=== PATIENT | male | born 1945 | race Caucasian/White ===

== ENCOUNTER 2023-02-24 13:44 | Inpatient (IN) | payer OTHER, MEDICAID ==
[~2023-02-24] VITALS: Ht 170.2 cm; Wt 51.7 kg
[2023-02-24 13:56] VITALS: BP_SYST 114; PULSE 86; RESP 18; TEMP 98.3; O2SAT 96
[2023-02-24] MEDS ORDERED: NACL 0.9% 1,000 ML IV ONE (14:15)
[2023-02-24 14:52] LABS: BASOPHILS % (AUTO) 0.2 % (0.0-2.0); HEMATOCRIT 31.5 % (36-54); HEMOGLOBIN 10.5 g/dL (14.0-18.0); LYMPHOCYTES # (AUTO) 1.1 K/uL (1.0-5.5); MEAN CORPUSCULAR HEMOGLOBIN 29 pg (27-31); MEAN CORPUSCULAR HGB CONC 33 % (32-36); MEAN CORPUSCULAR VOLUME 88 fL (79.0-98.0); MONOCYTES # (AUTO) 1.2 K/uL (0.0-1.0); NEUTROPHILS # (AUTO) 8.9 K/uL (1.8-7.7); NEUTROPHILS % (AUTO) 78.8 % (40.0-70.0); PLATELET COUNT (AUTO) 451 K/uL (130-430); RED BLOOD CELL COUNT(AUTO) 3.57 MIL/uL (4.2-6.2); RED CELL DISTRIBUTION WIDTH 17.7 % (9.0-15.0); WHITE BLOOD COUNT (AUTO) 11.3 K/uL (4.8-10.8)
[2023-02-24 14:59] LABS: ANION GAP 9 (5-15); CALCIUM 8.5 mg/dL (8.4-11.0); CHLORIDE 106 mmol/L (98-107); CREATININE 0.76 mg/dL (0.55-1.30); GLUCOSE 93 mg/dL (74-106); UREA NITROGEN, BLOOD 17 mg/dL (8-21)
[2023-02-24 15:03] LABS: ALANINE AMINOTRANSFERASE 20 U/L (12-78); ALBUMIN 3.2 g/dL (3.4-4.8); ASPARTATE AMINOTRANSFERASE 20 U/L (10-37); TOTAL BILIRUBIN 0.4 mg/dL (0.0-1.0)
--- NOTE | 2023-02-24 15:44 | NUR ---
In ER bed 2 Sent because he has not been able to sit up well at facilty
[2023-02-24 17:43] LABS: BILIRUBIN,URINE NEGATIVE (NEGATIVE); BLOOD, URINE 2+ (NEGATIVE); CLARITY/URINE HAZY (CLEAR); COLOR,URINE YELLOW (YELLOW); GLUCOSE,URINE NEGATIVE (NEGATIVE); KETONES,URINE TRACE (NEGATIVE); LEUKOCYTE ESTERASE ,URINE 2+ (NEGATIVE); NITRITE, URINE POSITIVE (NEGATIVE); PROTEIN URINE 1+ (NEGATIVE)
[2023-02-24 17:46] LABS: RBC,URINE 20-50 /HPF (0-3)
[2023-02-24 17:47] LABS: BACTERIA,URINE MANY /HPF (None Seen); WBC,URINE 20-50 /HPF (0-3)
[2023-02-24] MEDS ORDERED: PIPERACILLIN/TAZO 3.375 GM in NS 50 ML IV ONE (18:00)
[2023-02-24] MEDS ORDERED: PIPERACILLIN/TAZOBACTAM 3.375 GM/VIAL (ZOSYN) IV ONE (18:49)
--- NOTE | 2023-02-24 19:15 | NUR ---
ER at bedside examining patient.
--- NOTE | 2023-02-24 19:20 | NUR ---
REPORT REVIEVED FROM [facility]
[2023-02-24] MEDS ORDERED: ASPI-858 PO (20:54)
[2023-02-24] MEDS ORDERED: ACET325T53 PO (20:54)
[2023-02-24] MEDS ORDERED: MELA1TAB29 PO (20:54)
[2023-02-24] MEDS ORDERED: VITD2000 PO (20:54)
[2023-02-24] MEDS ORDERED: DOCU-144 PO (20:54)
[2023-02-24] MEDS ORDERED: VITD400 PO (20:54)
[2023-02-24] MEDS ORDERED: MOM PO (20:54)
[2023-02-24] MEDS ORDERED: IPRATROPIUM BROM 0.5 MG/2.5 ML VIAL.NEB (ATROVENT) INH PRN (21:00)
[2023-02-24] MEDS ORDERED: ONDANSETRON HCL 4 MG/2 ML VIAL IVP PRN (21:00)
[2023-02-24] MEDS ORDERED: HYDROcodone/ACETAMIN 5-325 MG TAB (NORCO/ VICODIN) PO PRN (21:00)
[2023-02-24] MEDS ORDERED: NALOXONE HCL 0.4 MG/ML AMP (NARCAN) IVP PRN ×2 (21:00)
[2023-02-24] MEDS ORDERED: HYDROcodone/ACETAMIN 10-325 MG TAB PO PRN (21:00)
[2023-02-24] MEDS ORDERED: ACETAMINOPHEN 325 MG TABLET PO PRN (21:00)
[2023-02-24] MEDS ORDERED: ALBUTEROL SULFATE 0.083% 2.5 MG/3 ML VIAL.NEB INH PRN (21:00)
[2023-02-24] MEDS ORDERED: LORazepam 2 MG/ML VIAL IVP PRN (21:00)
--- NOTE | 2023-02-24 21:08 | NUR ---
AAdmit bed requested Patient will be admitted to care of . Admitted to TELE unit. Diagnosis SEPSIS, PNEUMONIA, UTI Inpatient (Yes or No) YES Observation (Yes or No) NO Orientation concerns or request close to nursing station (Yes or No) NO Covid Status NA On vent or bipap NO Isolation requirements NO Needs a sitter NO From Home (Yes or if No enter name of facility) [facility] Requires Dialysis (Yes or No) NO Med Rec Completed (Yes of No) YES
--- NOTE | 2023-02-24 21:25 | NUR ---
PT REMOVED IV. NO BLEEDING NOTED
[2023-02-24] MEDS: NORMAL SALINE 5 ML DISP.SYRIN IVF SCH (22:00)
--- NOTE | 2023-02-24 22:04 | NUR ---
PT SLEEPING IN BED
[2023-02-25] VITALS (10 sets, daily range): BP systolic 111–137; PULSE 69–105; RESP 16–20; TEMP 97.5–98.2; O2SAT 93–98
[2023-02-25] MEDS ORDERED: AZITHROMYCIN 500 MG/VIAL (ZITHROMAX) IV ONE (00:52)
[2023-02-25] MEDS: cefTRIAXone 1 GM IVPB PREMIX 50 ML IV SCH (01:26)
--- NOTE | 2023-02-25 02:17 | NUR ---
Patient will be admitted to care of [facility]. Admitted to TELE unit. Will go to room 132A. Belongings list completed. Complete and up to date summary report printed. SBAR report to be given at bedside with opportunity for questions.
[2023-02-25] MEDS: AZITHROMYCIN 500 MG in NS 250 ML IV SCH (02:28)
--- NOTE | 2023-02-25 02:28 | NUR ---
ADMIT NOTE Received pt from ER to the floor with a diagnosis of SEPSIS PNA . Admission process initiated. patient oriented to pain management,comfort measures implemented also multiple open skin areas noted to both lower legs & knees / procedures explained FALL RISK MEASURES implemented Bed Alarm is on / .
--- NOTE | 2023-02-25 04:46 | NUR ---
CONSULTATION PAGED REASON FOR CONSULTATION: SEPSIS WAS CONSULT CALLED? Y PERSON WHO WAS NOTIFIED: TIANA CONSULTING PHYSICIAN: KESHIA BIAS CUTTING MACHINE OPERATOR VERTICAL SPECIALTY: ID BIAS CUTTING MACHINE OPERATOR VERTICAL PHONE NUMBER: [phone] REQUESTING PHYSICIAN: Gerardo MORRIS
[2023-02-25 05:38] LABS: BASOPHILS % (AUTO) 0.3 % (0.0-2.0); EOSINOPHILS % (AUTO) 0.1 % (0.0-4.0); HEMATOCRIT 30.6 % (36-54); LYMPHOCYTES # (AUTO) 1.1 K/uL (1.0-5.5); LYMPHOCYTES % (AUTO) 10.4 % (20.5-51.5); MEAN CORPUSCULAR HEMOGLOBIN 29 pg (27-31); MEAN CORPUSCULAR HGB CONC 33 % (32-36); MEAN CORPUSCULAR VOLUME 88 fL (79.0-98.0); MONOCYTES # (AUTO) 1.1 K/uL (0.0-1.0); MONOCYTES % (AUTO) 10.7 % (1.7-9.3); NEUTROPHILS # (AUTO) 8.1 K/uL (1.8-7.7); NEUTROPHILS % (AUTO) 78.5 % (40.0-70.0); PLATELET COUNT (AUTO) 417 K/uL (130-430); RED BLOOD CELL COUNT(AUTO) 3.48 MIL/uL (4.2-6.2); RED CELL DISTRIBUTION WIDTH 17.7 % (9.0-15.0); WHITE BLOOD COUNT (AUTO) 10.4 K/uL (4.8-10.8)
[2023-02-25] MEDS: NORMAL SALINE 5 ML DISP.SYRIN IVF SCH ×2 (05:40→14:00)
[2023-02-25 05:46] LABS: ANION GAP 10 (5-15); CALCIUM 8.3 mg/dL (8.4-11.0); CHLORIDE 107 mmol/L (98-107); CREATININE 0.69 mg/dL (0.55-1.30); GLUCOSE 80 mg/dL (74-106); UREA NITROGEN, BLOOD 15 mg/dL (8-21)
--- NOTE | 2023-02-25 08:23 | NUR ---
OPENING NOTES: RECEIVED BEDSIDE SBAR FROM ON SHIFT NURSE, NO S/S OF ANY DISTRESS, ABLE TO MAKE NEEDS KNOWN, BED AT LOCKED AND LOW POSITION CALL LIGHT IN REACH, ALL SAFETY CHECK DONE AND WILL DO THOUGHT THE DAY, WILL CONT TO MONITOR PATIENT PER ORDERS
--- NOTE | 2023-02-25 11:35 | NUR ---
SPOKE WITH DR EMETERIO RAMIREZ TO D/C BACK TO SNF
--- NOTE | 2023-02-25 17:08 | NUR ---
[facility] AT BEDSIDE DOES NOT WANT PATIENT TO GO BACK TO [facility]. SNF WILL CALL [facility] ON MONDAY. LUZ [phone]
--- NOTE | 2023-02-25 18:36 | NUR ---
CLOSING NOTES: PATIENT REMAINED STABLE THOUGHT THE DAY, NO S/S DISTRESS, BED AT LOW AND LOCKED POSITION, CALL LIGHT IN REACH, ALL NEEDS WERE MET, ALL SAFETY CHECKS DONE, WILL GIVE PM SHIFT NURSE BEDSIDE SBAR.
[2023-02-26] MEDS: NORMAL SALINE 5 ML DISP.SYRIN IVF SCH ×3 (00:31→14:08)
[2023-02-26] MEDS: cefTRIAXone 1 GM IVPB PREMIX 50 ML IV SCH (00:58)
[2023-02-26] MEDS: AZITHROMYCIN 500 MG in NS 250 ML IV SCH (00:58)
[2023-02-26 02:00] VITALS: BP_SYST 100; PULSE 83; RESP 17; TEMP 97.4; O2SAT 94
[2023-02-26 06:05] LABS: BASOPHILS % (AUTO) 0.4 % (0.0-2.0); EOSINOPHILS % (AUTO) 0.2 % (0.0-4.0); HEMATOCRIT 31.5 % (36-54); HEMOGLOBIN 10.1 g/dL (14.0-18.0); LYMPHOCYTES # (AUTO) 1.4 K/uL (1.0-5.5); LYMPHOCYTES % (AUTO) 13.4 % (20.5-51.5); MEAN CORPUSCULAR HEMOGLOBIN 29 pg (27-31); MEAN CORPUSCULAR HGB CONC 32 % (32-36); MEAN CORPUSCULAR VOLUME 90 fL (79.0-98.0); MONOCYTES # (AUTO) 1.4 K/uL (0.0-1.0); MONOCYTES % (AUTO) 13.2 % (1.7-9.3); NEUTROPHILS # (AUTO) 7.8 K/uL (1.8-7.7); NEUTROPHILS % (AUTO) 72.8 % (40.0-70.0); PLATELET COUNT (AUTO) 402 K/uL (130-430); RED BLOOD CELL COUNT(AUTO) 3.49 MIL/uL (4.2-6.2); RED CELL DISTRIBUTION WIDTH 18.2 % (9.0-15.0); WHITE BLOOD COUNT (AUTO) 10.7 K/uL (4.8-10.8)
[2023-02-26 07:01] LABS: ANION GAP 15 (5-15); CALCIUM 8.6 mg/dL (8.4-11.0); CHLORIDE 107 mmol/L (98-107); CREATININE 0.76 mg/dL (0.55-1.30); GLUCOSE 61 mg/dL (74-106); UREA NITROGEN, BLOOD 18 mg/dL (8-21)
--- NOTE | 2023-02-26 07:30 | NUR ---
Initial note: report received from [facility]. Patient is awake but confused. Bed in the lowest position and side rails x4 up. Bed alarm is on. No sign pain or discomfort at this time. Will continue patient care.
[2023-02-26 08:00] VITALS: BP_SYST 142; PULSE 86; RESP 18; TEMP 96.3; O2SAT 96
[2023-02-26 09:12] LABS: ERYTHROCYTE SEDIMENTATION RATE 85 MM/HR (0-15)
--- NOTE | 2023-02-26 11:22 | NUR ---
CM: Discharge Barriers: No H/P, no ER/MD's report, pending PT eval and UA cultures/IS. Dr Turner made aware, said he completed the H/P yesterday but still no report on [facility]. plans to dc pt tomorrow.
[2023-02-26 12:33] VITALS: BP_SYST 125; PULSE 81; RESP 18; TEMP 97.9
--- NOTE | 2023-02-26 12:49 | NUR ---
Note: patient is resting in bed. Awake but confused. Son Bill is at the bedside with patient. Informed and signed the consent of the midline placement. Instructed and ok with the restraint if it is necessary. Midline placement order printed and gave to fun house attendant Susie. Will continue to monitor. No pain or discomfort or aggressive behavior at this time.
--- NOTE | 2023-02-26 13:25 | NUR ---
Note: patient is stable on the heart rate. Informed Dr. Hamilton Turner and ok to downgrade patient to med-surg level. Addendum: 02/26/23 at 1327 by Zain Rai RN Telemetry box is removed. Patient is resting in bed. No pain or discomfort at this time.
[2023-02-26] MEDS ORDERED: AZIT500T3 PO (14:34)
[2023-02-26] MEDS ORDERED: ROCPM1 IV (14:34)
--- NOTE | 2023-02-26 14:42 | NUR ---
CM: SNF: Per Bill, son after touring snf facility today, he requested [facility], [facility]. Faxed referral attn to [facility]. [facility], will send the clinicals to [facility] for review and there is no bed for today. Faxed referral to [facility] CM/DCP to f/u Addendum: 02/26/23 at 1642 by Israel Weldon RN [facility] , will need 3 nights stay and son to agree with the transfer.
--- NOTE | 2023-02-26 15:34 | NUR ---
Dietitian Recommendations * Continue regular diet * Ordered Ensure HP BID (provides 700 kcal and 40 g PRO) * Ordered Luis Angel BID (provides 180 kcal and 5 g PRO) GS, MPH, RD Please refer to RD Assessment for further details. Thanks! Addendum: 02/26/23 at [address] Amended: Links added.
[2023-02-26 16:45] VITALS: BP_SYST 129; BP_SYST 138; PULSE 74; PULSE 83; RESP 17; TEMP 97.6; TEMP 98.4; O2SAT 94
--- NOTE | 2023-02-26 16:50 | NUR ---
Note: patient is resting in bed. No sign of pain or discomfort at this time. Waiting for PICC line nurse come for midline placement. will continue to monitor. Bed alarm is on and closed to the nurse station.
--- NOTE | 2023-02-26 17:24 | NUR ---
Note: midline is inserted on the Right upper arm by picc line nurse Daren at the bedside. Patient tolerated well. No pain or discomfort at this time. Bed in the lowest position and side rails x4 up. Bed alarm is on and patient's room is closed to the nurse station. Will continue to monitor.
[2023-02-26 19:00] VITALS: O2SAT 94
--- NOTE | 2023-02-26 19:27 | NUR ---
Closing note: reported to [place]. Patient is resting in bed. No pain or discomfort at this time. Bed alarm on. Endorse to continue patient care.
[2023-02-26 20:00] VITALS: BP_SYST 153; PULSE 74; RESP 17; TEMP 96.9; O2SAT 94
[2023-02-27] MEDS: cefTRIAXone 1 GM IVPB PREMIX 50 ML IV SCH (01:13)
[2023-02-27] MEDS: AZITHROMYCIN 500 MG in NS 250 ML IV SCH (01:14)
[2023-02-27] MEDS: NORMAL SALINE 5 ML DISP.SYRIN IVF SCH ×3 (01:15→13:49)
[2023-02-27 04:37] LABS: BASOPHILS % (AUTO) 0.5 % (0.0-2.0); EOSINOPHILS % (AUTO) 0.7 % (0.0-4.0); HEMATOCRIT 30.6 % (36-54); LYMPHOCYTES # (AUTO) 1.2 K/uL (1.0-5.5); LYMPHOCYTES % (AUTO) 16.3 % (20.5-51.5); MEAN CORPUSCULAR HEMOGLOBIN 29 pg (27-31); MEAN CORPUSCULAR HGB CONC 33 % (32-36); MEAN CORPUSCULAR VOLUME 89 fL (79.0-98.0); MONOCYTES # (AUTO) 1.1 K/uL (0.0-1.0); MONOCYTES % (AUTO) 15.4 % (1.7-9.3); NEUTROPHILS % (AUTO) 67.1 % (40.0-70.0); PLATELET COUNT (AUTO) 370 K/uL (130-430); RED BLOOD CELL COUNT(AUTO) 3.44 MIL/uL (4.2-6.2); RED CELL DISTRIBUTION WIDTH 18.4 % (9.0-15.0); WHITE BLOOD COUNT (AUTO) 7.4 K/uL (4.8-10.8)
[2023-02-27 04:42] LABS: ERYTHROCYTE SEDIMENTATION RATE 34 MM/HR (0-15)
[2023-02-27 05:06] LABS: ALANINE AMINOTRANSFERASE 24 U/L (12-78); ALBUMIN 2.6 g/dL (3.4-4.8); ANION GAP 8 (5-15); ASPARTATE AMINOTRANSFERASE 42 U/L (10-37); CALCIUM 8.4 mg/dL (8.4-11.0); CHLORIDE 110 mmol/L (98-107); CREATININE 0.61 mg/dL (0.55-1.30); GLUCOSE 78 mg/dL (74-106); TOTAL BILIRUBIN 0.3 mg/dL (0.0-1.0); UREA NITROGEN, BLOOD 16 mg/dL (8-21)
--- NOTE | 2023-02-27 07:30 | NUR ---
Closing Note Report and updated SBAR given to day shift RN. Interventions and all questions answered. endorsed that patients nails need to be scrubbed b/c there is feces in them which could lead to another infection.
[2023-02-27 08:22] VITALS: BP_SYST 121; PULSE 74; RESP 16; TEMP 96.8; O2SAT 97
[2023-02-27] MEDS ORDERED: MILK OF MAGNESIA 30 ML UDC PO PRN (10:45)
[2023-02-27] MEDS ORDERED: ACETAMINOPHEN 325 MG TABLET PO PRN ×2 (10:45→11:00)
[2023-02-27 11:28] VITALS: BP_SYST 117; PULSE 81; RESP 19; TEMP 98.5; O2SAT 93
--- NOTE | 2023-02-27 11:42 | NUR ---
Patient accepted at [facility] Room - Number for report [phone] on will call .
--- NOTE | 2023-02-27 14:05 | NUR ---
called [facility] on will call - eta given is 530pm
--- NOTE | 2023-02-27 14:11 | NUR ---
informed pt's son linette ray of transfer to [facility] at 1730pm.
[2023-02-27 16:03] VITALS: BP_SYST 124; PULSE 72; RESP 18; TEMP 98.1; O2SAT 93
[2023-02-27 16:46] VITALS: BP_SYST 124; PULSE 72; RESP 18; TEMP 98.1; O2SAT 92
--- NOTE | 2023-02-27 17:00 | NUR ---
SBAR REPORT GIVEN TO DEE PA OF [facility].
--- NOTE | 2023-02-27 17:32 | NUR ---
PT CAME BACK POSITIVE FOR PROTEUS MIRABILIS IN THE URINE. INFORMED STEVE (CM) AND PAGED DR STORM ( NO CALL BACK ), RECEIVING FACILITY MADE AWARE OF MDRO IN THE URINE ( C/O THIERNO)
--- NOTE | 2023-02-27 18:04 | NUR ---
D/C Patient Patient given medication reconciliation form and D/C instructions. Exit Care provided. Patient verbalized understanding. MD discussed with patient the results and treatment provided. Ambulatory with steady gait for discharge to home. Patient in stable condition, ID band removed. IV catheter KEPT INTACT, PT IS GOING TO GET ANTIBIOTICS AT THE SNF. NO Rx given. Patient educated on pain management. All belongings sent with patient.
[2023-02-27] MEDS ORDERED: DOCUSATE SODIUM 100 MG CAPSULE PO SCH (21:00)
[2023-02-27] MEDS ORDERED: NON-FORMULARY MEDICATION (Melatonin/Pyridoxine HCl (B6) (Melatonin 3 mg Tablet) 1 TAB) PO SCH (21:00)
[2023-02-28] MEDS ORDERED: ASPIRIN 325 MG TABLET PO SCH (09:00)
[2023-02-28] MEDS ORDERED: CHOLECALCIFEROL (VITAMIN D-3) 400 UNIT TABLET PO SCH (09:00)
== END 2023-02-27 18:04 | DRG 871 ==
LOC: SED 13:44 → STU 17:59 → SMU 02-25 02:18 → STU 02-25 02:18 → SMU 02-26 13:35
PROVIDERS: ADMIT Preventive Medicine Preventive Medicine/Occupational Environmental Medicine; ATTEND Preventive Medicine Preventive Medicine/Occupational Environmental Medicine
DX: A41.9 Sepsis, unspecified organism (principal); J15.9 Unspecified bacterial pneumonia; N39.0 Urinary tract infection, site not specified; E87.0 Hyperosmolality and hypernatremia; F03.90 Unspecified dementia, unspecified severity, without behavioral disturbance, psychotic disturbance, mood disturbance, and anxiety; E88.09 Other disorders of plasma-protein metabolism, not elsewhere classified; D72.829 Elevated white blood cell count, unspecified; D64.9 Anemia, unspecified; D75.839 Thrombocytosis, unspecified; I10 Essential (primary) hypertension; Z20.822 Contact with and (suspected) exposure to COVID-19; B96.89 Other specified bacterial agents as the cause of diseases classified elsewhere; Y95 Nosocomial condition; R53.81 Other malaise; Z88.6 Allergy status to analgesic agent; Z79.899 Other long term (current) drug therapy; Z79.82 Long term (current) use of aspirin
CPT/HCPCS: 36415; 71045; 80048; 80053; 81000; 83605; 83880; 84484; 85025; 85651-TC; 87040; 87086; 93005; 94760; 99285; G0378; J0456; J0696; J2060; J2543; J7040; J7050